=== PATIENT | female | born 1970 | race Caucasian/White ===

== ENCOUNTER 2020-09-28 13:54 | Emergency (ER) | payer SELFPAY ==
[2020-09-28 16:48] LABS: Hematocrit 35.2 % (36.0-45.0); MPV 6.9 fL (7.6-11.3); RBC Red Blood Cell Count 4.53 M/uL (3.86-4.86)
[2020-09-28] MEDS ORDERED: ONDANSETRON 4 MG/2 ML VIAL ONE (16:49)
[2020-09-28] MEDS ORDERED: NA CHLORIDE 0.9% 1,000 ML ONE (16:49)
[2020-09-28] MEDS ORDERED: KETOROLAC 30 MG/ML INJ ONE (16:49)
[2020-09-28 16:56] LABS: Urine Bacteria <20 /HPF (<20); Urine RBC <5 /HPF (NONE SEEN)
--- NOTE | 2020-09-28 17:06 | RAD REPORT ---
EXAM DESCRIPTION: CTAbdomen Pelvis W Contrast - 09/28/2020 4:58 pm CLINICAL HISTORY: Abdominal pain. ABD PAIN COMPARISON: Ct Stroke Brain Wo Cont dated 09/28/2020Abdomen Pelvis W Contrast dated 09/09/2016; CT ABD PELVIS W CONTRAST dated 08/28/2015 TECHNIQUE: Biphasic CT imaging of the abdomen and pelvis was performed with 100 ml non-ionic IV cont rast. All CT scans are performed using dose optimization technique as appropriate and may include automated exposure control or mA/KV adjustment according to patient size. FINDINGS: The lung bases are clear. The liver, spleen, pancreas, adrenal glands and kidneys are within normal limits. No bowel obstruction, free air, free fluid or abscess. The appendix is normal. No evidence of signi ficant lymphadenopathy. No suspicious bony findings. Fibroid uterus is noted with 5 cm fibroid in the region of the endometrium. IMPRESSION: No acute intra-abdominal or pelvic finding. Multi fibroid uterus.
[2020-09-28 17:07] LABS: BUN Blood Urea Nitrogen 10 mg/dL (7-18); Bicarbonate 27 mmol/L (21-32); Glucose Level 103 mg/dL (74-106); Potassium 3.7 mmol/L (3.5-5.1); Sodium Level 138 mmol/L (136-145)
--- NOTE | 2020-09-28 17:28 | ER ---
Nurse's Notes [facility] Name: Harpreet Bernal Age: 50 yrs Sex: Female : 1970 Arrival Date: 09/28/2020 Time: 13:58 Bed 24 Private MD: Diagnosis: Lower abdominal pain, unspecified Presentation: 09/28 14:07 Chief complaint: Patient states: went and did some errands this morning and then iw started having right sided abd pain, no vomiting or diarrhea, pain is intermittent and sharp , was told she might have cyst on her fallopian tube, that was 4-5 years ago, denies urinary s/s. Coronavirus screen: At this time, the client does not indicate any symptoms associated with coronavirus-19. Ebola Screen: Patient negative for fever greater than or equal to 101.5 degrees Fahrenheit, and additional compatible Ebola Virus Disease symptoms Patient denies exposure to infectious person. Patient denies travel to an Ebola-affected area in the 21 days before illness onset. No symptoms or risks identified at this time. Initial Sepsis Screen: Does the patient meet any 2 criteria? No. Patient's initial sepsis screen is negative. Does the patient have a suspected source of infection? No. Patient's initial sepsis screen is negative. Risk Assessment: Do you want to hurt yourself or someone else? Patient reports no desire to harm self or others. Onset of symptoms was September 28, 2020. 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 - Social history:: Smoking status: Patient denies any tobacco usage or history of. Screenin:20 Abuse screen: Denies threats or abuse. Denies injuries from another. Nutritional ca1 screening: No deficits noted. Tuberculosis screening: No symptoms or risk factors identified. Fall Risk IV access (20 points). Assessment: 16:20 General: Appears in no apparent distress. comfortable, Behavior is calm, cooperative, ca1 appropriate for age. Pain: Complains of pain in anterior aspect of right lateral abdomen and right lower quadrant Pain does not radiate. Pain currently is 7 out of 10 on a pain scale. Pain began this morning Is intermittent. Neuro: Level of Consciousness is awake, alert, obeys commands, Oriented to person, place, time, situation. Cardiovascular: Heart tones S1 S2 present Capillary refill < 3 seconds Patient's skin is warm and dry. Respiratory: Airway is patent Respiratory effort is even, unlabored, Respiratory pattern is regular, symmetrical, Breath sounds are clear bilaterally. GI: Abdomen is flat, non-distended, Bowel sounds present X 4 quads. Abd is soft X 4 quads Abdomen is tender to palpation in right lower quadrant Reports nausea. : No signs and/or symptoms were reported regarding the genitourinary system. EENT: No signs and/or symptoms were reported regarding the EENT system. Derm: Skin is intact, is healthy with good turgor, Skin is pink, warm \T\ dry. Musculoskeletal: Circulation, motion, and sensation intact. Capillary refill < 3 seconds. 17:15 Reassessment: Patient appears in no apparent distress at this time. Patient and/or ca1 family updated on plan of care and expected duration. Pain level reassessed. Patient is alert, oriented x 3, equal unlabored respirations, skin warm/dry/pink. 17:40 Reassessment: Patient appears in no apparent distress at this time. Patient is alert, ca1 oriented x 3, equal unlabored respirations, skin warm/dry/pink. Vital Signs: 14:07 BP 144 / 85; Pulse 105; Resp 16 S; Temp 98.3(O); Pulse Ox 100% on R/A; Weight 65.77 kg; iw Height 4 ft. 10 in. (147.32 cm); Pain 8/10; 15:58 BP 163 / 105 LA Supine (auto/reg); Pulse 112; Resp 18; Pulse Ox 99% on R/A; Pain 8/10; jp3 16:20 BP 157 / 84; Pulse 103; Resp 18 S; Pulse Ox 99% on R/A; ca1 17:17 BP 139 / 79; Pulse 102; Resp 16 S; Pulse Ox 97% on R/A; ca1 14:07 Body Mass Index 30.30 (65.77 kg, 147.32 cm) iw ED Course: 13:58 Patient arrived in ED. ds1 14:10 Triage completed. iw 14:10 Arm band placed on. iw 14:41 Kimberly Sauceda FNP-C [facility]. kb 14:41 Tari Bloom MD is Attending Physician. kb 15:30 Urine collected: clean catch specimen, clear, jamaal colored. jp3 15:58 Bed in low position. Call light in reach. Side rails up X 1. Warm blanket given. Verbal jp3 reassurance given. Pulse ox on. NIBP on. 15:59 Patient maintains SpO2 saturation greater than 95% on room air. jp3 16:07 Neelam Colby, RN is Primary Nurse. ca1 16:07 Urine Microscopic Only Sent. jp3 16:33 Initial lab(s) drawn, by me, sent to lab. Inserted saline lock: 22 gauge in right ca1 antecubital area, using aseptic technique. Blood collected. 16:57 CT Abd/Pelvis - IV Contrast Only In Process Unspecified. EDMS 17:40 No provider procedures requiring assistance completed. IV discontinued, intact, ca1 bleeding controlled, No redness/swelling at site. Pressure dressing applied. Administered Medications: 16:34 Drug: NS 0.9% 1000 ml Route: IV; Rate: 1000 ml; Site: right antecubital; ca1 17:39 Follow up: IV Status: Completed infusion; IV Intake: 1000ml ca1 16:35 Drug: Zofran (Ondansetron) 4 mg Route: IVP; Site: right antecubital; ca1 17:16 Follow up: Response: No adverse reaction; Nausea is decreased ca1 16:37 Drug: TORadol - Ketorolac 15 mg Route: IVP; Site: right antecubital; ca1 17:17 Follow up: Response: No adverse reaction; Pain is decreased ca1 Intake: 17:39 IV: 1000ml; Total: 1000ml. ca1 Outcome: 17:28 Discharge ordered by . kb 17:40 Discharged to home ambulatory. ca1 17:40 Condition: stable 17:40 Discharge instructions given to patient, Instructed on discharge instructions, follow up and referral plans. medication usage, Demonstrated understanding of instructions, follow-up care, medications, Prescriptions given X 2. 17:40 Patient left the ED. ca1 Signatures: Dispatcher [employer] EDMS Kimberly Sauceda FNP-C FNP-Elmira Carranza ds1 Manda Hale, RN RN iw Lio Lizarraga jp3 Neelam Colby, RN RN ca1
--- NOTE | 2020-09-28 17:28 | EDPHYS ---
Physician Documentation [facility] Name: Harpreet Bernal Age: 50 yrs Sex: Female : 1970 Arrival Date: 09/28/2020 Time: 13:58 Bed 24 Private MD: ED Physician Tari Bloom HPI: 09/28 16:38 This 50 yrs old Female presents to ER via Ambulatory with complaints of R kb Side Abd Pain. 16:38 The patient presents with abdominal pain right lower quadrant. Onset: The kb symptoms/episode began/occurred today. The symptoms do not radiate. Associated signs and symptoms: Pertinent positives: nausea, Pertinent negatives: diarrhea, fever, vomiting. The symptoms are described as constant. Modifying factors: The symptoms are alleviated by nothing, the symptoms are aggravated by movement, pressure. Severity of pain: At its worst the pain was moderate in the emergency department the pain is unchanged. The patient has not experienced similar symptoms in the past. The patient has not recently seen a physician. HAY BUCKLER: 16:40 LMP 09/23/2020 ca1 Historical: - Allergies: 14:10 No Known Allergies; iw - Home Meds: 14:10 None [Active]; iw - PMHx: 14:10 None; iw - PSHx: 14:10 ; iw - Immunization history:: Adult Immunizations not up to date. - Social history:: Smoking status: Patient denies any tobacco usage or history of. ROS: 16:37 Constitutional: Negative for fever, chills, and weight loss, Cardiovascular: Negative kb for chest pain, palpitations, and edema, Respiratory: Negative for shortness of breath, cough, wheezing, and pleuritic chest pain, Back: Negative for injury and pain, MS/Extremity: Negative for injury and deformity, Skin: Negative for injury, rash, and discoloration, Neuro: Negative for headache, weakness, numbness, tingling, and seizure. 16:37 Abdomen/GI: Positive for abdominal pain, nausea, Negative for vomiting, diarrhea. Exam: 16:37 Constitutional: This is a well developed, well nourished patient who is awake, alert, kb and in no acute distress. Head/Face: Normocephalic, atraumatic. Chest/axilla: Normal chest wall appearance and motion. Nontender with no deformity. No lesions are appreciated. Cardiovascular: Regular rate and rhythm with a normal S1 and S2. No gallops, murmurs, or rubs. Normal PMI, no JVD. No pulse deficits. Respiratory: Lungs have equal breath sounds bilaterally, clear to auscultation and percussion. No rales, rhonchi or wheezes noted. No increased work of breathing, no retractions or nasal flaring. Skin: Warm, dry with normal turgor. Normal color with no rashes, no lesions, and no evidence of cellulitis. MS/ Extremity: Pulses equal, no cyanosis. Neurovascular intact. Full, normal range of motion. Neuro: Awake and alert, GCS 15, oriented to person, place, time, and situation. Cranial nerves II-XII grossly intact. Motor strength 5/5 in all extremities. Sensory grossly intact. Cerebellar exam normal. Normal gait. 16:37 Abdomen/GI: Inspection: abdomen appears normal, Bowel sounds: normal, in all quadrants, Palpation: moderate abdominal tenderness, in the right lower quadrant. Vital Signs: 14:07 BP 144 / 85; Pulse 105; Resp 16 S; Temp 98.3(O); Pulse Ox 100% on R/A; Weight 65.77 kg; iw Height 4 ft. 10 in. (147.32 cm); Pain 8/10; 15:58 BP 163 / 105 LA Supine (auto/reg); Pulse 112; Resp 18; Pulse Ox 99% on R/A; Pain 8/10; jp3 16:20 BP 157 / 84; Pulse 103; Resp 18 S; Pulse Ox 99% on R/A; ca1 17:17 BP 139 / 79; Pulse 102; Resp 16 S; Pulse Ox 97% on R/A; ca1 14:07 Body Mass Index 30.30 (65.77 kg, 147.32 cm) iw MDM: 15:57 Patient medically screened. kb 16:37 Data reviewed: vital signs, nurses notes. Data interpreted: Pulse oximetry: on room air kb is 99 %. Interpretation: normal. 17:27 Counseling: I had a detailed discussion with the patient and/or guardian regarding: the kb historical points, exam findings, and any diagnostic results supporting the discharge/admit diagnosis, lab results, radiology results, the need for outpatient follow up, a family practitioner, to return to the emergency department if symptoms worsen or persist or if there are any questions or concerns that arise at home. 09/28 16:07 Order name: Urine Microscopic Only; Complete Time: 16:57 hb 09/28 16:10 Order name: Basic Metabolic Panel; Complete Time: 17:08 kb 09/28 16:10 Order name: CBC with Diff kb 09/28 16:14 Order name: Urine Dipstick--Ancillary (enter results) bd 09/28 16:14 Order name: Urine --Ancillary (enter results) bd 09/28 17:26 Order name: CBC with Automated Diff EDMS 09/28 16:07 Order name: Urine Dipstick-Ancillary (obtain specimen); Complete Time: 16:07 hb 09/28 16:10 Order name: IV Saline Lock; Complete Time: 16:33 kb 09/28 16:10 Order name: Labs collected and sent; Complete Time: 16:33 kb 09/28 16:10 Order name: CT Abd/Pelvis - IV Contrast Only; Complete Time: 17:11 kb Administered Medications: 16:34 Drug: NS 0.9% 1000 ml Route: IV; Rate: 1000 ml; Site: right antecubital; ca1 17:39 Follow up: IV Status: Completed infusion; IV Intake: 1000ml ca1 16:35 Drug: Zofran (Ondansetron) 4 mg Route: IVP; Site: right antecubital; ca1 17:16 Follow up: Response: No adverse reaction; Nausea is decreased ca1 16:37 Drug: TORadol - Ketorolac 15 mg Route: IVP; Site: right antecubital; ca1 17:17 Follow up: Response: No adverse reaction; Pain is decreased ca1 Disposition: 18:00 Co-signature as Attending Physician, Tari lBoom MD. ma2 Disposition: 09/28/20 17:28 Discharged to Home. Impression: Lower abdominal pain, unspecified. - Condition is Stable. - Discharge Instructions: Abdominal Pain, Adult, [id number]. - Prescriptions for Zofran 4 mg Oral Tablet - take 1 tablet by ORAL route every 6 hours As needed; 20 tablet. Diclofenac Sodium 75 mg Oral Tablet, Delayed Release (E.C.) - take 1 tablet by ORAL route 2 times per day As needed; 30 tablet. - Medication Reconciliation Form, Thank You Letter, Antibiotic Education, Prescription Opioid Use form. - Follow up: Emergency Department; When: As needed; Reason: Worsening of condition. Follow up: Private Physician; When: 2 - 3 days; Reason: Recheck today's complaints, Continuance of care, Re-evaluation by your physician. Signatures: Dispatcher [employer] ED Kimberly Sauceda, DOOR PATCHER-C DOOR PATCHER-Manda Alonso, RN RN iw Dariana Diza RN RN Tari Bloom MD MD ok2 Neelam Colby RN RN ca1 Corrections: (The following items were deleted from the chart) 17:40 17:28 09/28/2020 17:28 Discharged to Home. Impression: Lower abdominal pain, ca1 unspecified. Condition is Stable. Forms are Medication Reconciliation Form, Thank You Letter, Antibiotic Education, Prescription Opioid Use. Follow up: Emergency Department; When: As needed; Reason: Worsening of condition. Follow up: Private Physician; When: 2 - 3 days; Reason: Recheck today's complaints, Continuance of care, Re-evaluation by your physician. kb
[2020-09-28 20:08] LABS: Anisocytosis SLIGHT; Blood Morphology Comment NOTED (NOT SEEN); Platelet Estimate ADEQ; White Blood Cell Scan OK (OK)
[2020-09-28 20:32] LABS: Urine Blood 2+ (NEG); Urine Glucose NEGATIVE (NEG); Urine Protein NEGATIVE (NEG); Urine Specific Gravity 1.025 (1.005-1.030); Urine pH 6.5 (5.0-7.0)
== END 2020-09-28 17:40 | disposition home or self-care (01) ==
LOC: ER 13:54
DX: R10.31 Right lower quadrant pain (principal)
CPT/HCPCS: 36415; 74177; 80048; 81003; 81015; 81025; 82565; 85025; 96361; 96374; 96375; 99284; J2405; J7030; Q9967